=== PATIENT | female | born 1985 | race Caucasian/White ===

== ENCOUNTER 2018-04-26 14:07 | Outpatient (CLI) | payer MEDICAID, SELFPAY ==
[2018-04-26 16:08] LABS: TSH 3.62 uIU/mL (0.358-3.74)
[2018-04-26 16:10] LABS: HCG Quant, Pregnancy 53013 mIU/mL (1-3)
[2018-04-26 16:27] LABS: FREE T4 1.13 ng/dL (0.76-1.46)
== END 2018-04-26 14:27 ==
PROVIDERS: PCP Nurse Practitioner; Visit Provider Nurse Practitioner Family
DX: E03.9 Hypothyroidism, unspecified (principal); N92.6 Irregular menstruation, unspecified
CPT/HCPCS: 36415; 84439; 84443; 84702

== ENCOUNTER 2018-05-28 16:16 | Outpatient (CLI) | payer MEDICAID, SELFPAY ==
--- NOTE | 2018-05-28 16:15 | DI.US_ITS ---
SYMPTOMS/DIAGNOSIS: BLEEDING AND CRAMPING, S/P MAB 05/10 PELVIC ULTRASOUND: Pelvic ultrasound was performed transabdominally and transvaginally. Please see the accompanying data sheet for measurements of the pelvic structures. The endometrial stripe is about 18 mm in thickness and mildly heterogeneous consistent with hemorrhage as clinically reported. No other endometrial abnormality seen. Ovaries are normal in appearance. No free fluid identified in the cul-de-sac. CONCLUSION: Presumed hemorrhage in endometrial cavity. No other abnormality seen.
== END 2018-05-28 16:36 ==
PROVIDERS: PCP Nurse Practitioner; Visit Provider Nurse Practitioner Adult Health
DX: N93.9 Abnormal uterine and vaginal bleeding, unspecified (principal); N94.6 Dysmenorrhea, unspecified
CPT/HCPCS: 76830; 76856

== ENCOUNTER 2019-01-15 12:26 | Emergency (ER) | payer MEDICAID, SELFPAY ==
[2019-01-15 12:33] VITALS: BP 143/103; PULSE 75; RESP 16; TEMP 36.7; O2SAT 98
--- NOTE | 2019-01-15 12:41 | ED.GENADUL_ITS ---
Discharge Plan Disposition Patient Disposition: HOME Condition: Good Discharge Details Chief Complaint: Sorethroat Clinical Impression: URI (upper respiratory infection) Primary Care Provider: Teddy Walker ED Provider: Genia Mcbride Home Meds and New Rx's Prescriptions: New benzonatate [Tessalon Perles] 100 mg capsule 100 mg PO TID PRN (Reason: cough) Qty: 14 RF: 0 Continued levothyroxine 25 MCG tablet 25 mcg PO DAILY RF: 0 levetiracetam [Keppra XR] 500 MG tablet extended release 24 hr 750 mg PO DAILY RF: 0 Discharge Instructions Instructions: Upper Respiratory Infection (ED) Additional Instructions: Encourage hydration. Tylenol and/or ibuprofen as needed for discomfort. May use Tessalon Perles as prescribed to help with cough. Continue smoking cessation. Please follow-up with primary care in 1 to 2 weeks if not improved. Seek care urgently once again if you develop difficulty breathing, shortness of breath, inability stay hydrated or other new/worsening symptoms. Referrals: Teddy Walker [Primary Care Provider] - Medical Decision Making Patient is a 33-year-old female presenting today with chief complaint of URI. She reports she developed cough, congestion, sore throat 4 days ago. Denies any fevers or chills. No change in her appetite, no GI upset. Denies any sinus pain. No recent travel or antibiotics. Patient status post hysterectomy. On exam, patient appears nontoxic. Posterior oropharynx significant for mild erythema otherwise exam is without significant abnormality. Rapid strep testing was negative. Discussed these findings with the patient. Advised likely viral. Encourage hydration. We discussed symptomatic management. Will prescribe Tessalon Perles to help with cough. Advised the new/worsening symptoms that should prompt him to seek care urgently once again. Advised otherwise she follow-up with primary care if not improved in 1 week. All of her questions and concerns were addressed and she is in agreement this plan HPI General Mode of arrival: ambulatory . Date/Time Provider Initiated Documentation: 01/15/19 12:41 . Limitations to Documentation: no limitations . Information obtained by: patient and RN notes reviewed . History of Present Illness 33 year old F presents to the emergency department with the chief complaint of URI symptoms with congestion, cough, runny nose, sore throat, described as moderate, with intensity rated at 5. Quality is described as aching (sore throat), Patient started experiencing this day(s) (4) and it has been constant. No relieving factors improve symptom(s), No exacerbating factors reported . Patient notes no other symptoms. and cough; denies chest pain, diaphoresis, fever/chills, headaches, loss of appetite, nausea/vomiting, rash and shortness of breath. Patient did receive the following treatments prior to arrival, none Related Data Home Medications Medication Instructions Recorded Confirmed levetiracetam [Keppra XR] 750 mg PO DAILY tab-cap 02/12/15 01/15/19 levothyroxine 25 mcg PO DAILY tab-cap 02/12/15 01/15/19 benzonatate [Tessalon Perles] 100 mg PO TID PRN #14 cap 01/15/19 Previous Rx's Medication Instructions Recorded benzonatate [Tessalon Perles] 100 mg PO TID PRN #14 cap 01/15/19 Allergies Allergy/AdvReac Type Severity Reaction Status Date / Time prednisone AdvReac Intermediate FORGETFUL Verified 01/15/19 12:36 AND ANGRY environmental Allergy Intermediate Uncoded 04/29/18 09:51 General Stated Complaint: Sorethroat NICHOLAS: 4 Review of Systems Constitutional Constitutional: Reports as per HPI, Denies chills, Denies fever(s) and Denies headache(s) Eyes Eyes: Reports as per HPI, Denies eye discharge and Denies irritation ENT Ears, Nose, Mouth, and Throat: Reports as per HPI and Denies headache(s) Cardiovascular Cardiovascular: Reports as per HPI, Denies chest pain and Denies dyspnea Respiratory Respiratory: Reports as per HPI and Denies dyspnea Gastrointestinal Gastrointestinal: Reports as per HPI, Denies abdominal pain, Denies change in bowel habits, Denies nausea and Denies vomiting Integumentary/Breasts Skin/Breast: Reports as per HPI and Denies rash Neurologic Neurologic: Reports as per HPI and Denies headache(s) [facility] Medical History Abdominal pain (Resolved) Childhood asthma History of depression HSIL (high grade squamous intraepithelial lesion) on Pap smear of cervix (Acute 10/05/15) 10/05/15 LEEP Rx - TASHIA II-III - high grade lesion present at endocervical margin. 10/2016 Pap - HGSIL. LEEP recommended. Hypothyroid (Acute 11/24/11) Migraine without aura Personal history of cervical dysplasia (Acute 02/12/15) TASHIA I-II 08/2014 Reading seizure disorder (Chronic) Seizure disorder (Acute 11/24/11) Tobacco use (Acute 12/18/16) Surgical History section (~2008) Social History Smoking/Tobacco Use Status: Current every day Alcohol Intake: current Alcohol Intake frequency: holidays/special occasions only Drug use: Never Do you feel safe at home: Yes Do you feel safe in your relationship?: Yes History History 3 Para 1 Hx # Term Pregnancies Multiple births Hx # Pregnancies Ectopic pregnancies AB induced Hx Number of Living Children AB spontaneous Exam Const General: cooperative, healthy appearing, comfortable, no acute distress, well developed and well groomed Nutritional Appearance: average body habitus and well nourished Orientation: alert and awake HENMT Head: normal to inspection, normocephalic and atraumatic Ears: hearing grossly normal bilaterally, external ears normal and TM's normal bilaterally General nose exam: external nose normal and nares normal Face and sinus: normal facial exam, sinuses nontender and face symmetric Mouth: oral mucosae normal, lip normal, tongue normal, oropharynx normal and moist mucous membranes Teeth and gingiva: dentition normal Throat: posterior oropharynx abnormal (mild erythema), uvula midline and tonsils absent Eyes General: appearance normal, both eyes and all related structures Neck Neck: normal visual inspection, full ROM, no lymphadenopathy and no meningeal signs Resp Effort & Inspection: normal respiratory effort, able to speak in complete sentences and no respiratory distress Auscultation: clear to auscultation bilaterally, no rales, no rhonchi and no wheezes Cardio Rate: regular rate Rhythm: regular rhythm Heart Sounds: S1 normal and S2 normal Skin General skin exam: no rashes or lesions noted Neuro General: alert and awake Cognition: normal cognition Speech: speech normal Gait: normal gait Psych Appearance: grossly normal and well kempt Mental Status: mental status grossly normal Speech and Movement: speech and movement normal Course Vital Signs Vital signs: Vital Signs Temperature 36.7 C 01/15/19 12:33 Pulse 75 01/15/19 12:33 Respiratory Rate 16 01/15/19 12:33 Blood Pressure 143/103 H 11/30/19 12:33 Pulse Oximetry 98 01/15/19 12:33 Temperature 36.7 C 01/15/19 12:33 Temperature Source Temporal Artery Scan 01/15/19 12:33 Pulse 75 01/15/19 12:33 Respiratory Rate 16 01/15/19 12:33 Respiratory Effort Non-Labored 01/15/19 12:35 Blood Pressure 143/103 H 01/15/19 12:33 Blood Pressure Position Sitting 01/15/19 12:33 Pulse Oximetry 98 01/15/19 12:33 Oxygen Delivery Method Room Air 01/15/19 12:33 Oxygen Flow Rate 0 01/15/19 12:33 Pain Level 5 01/15/19 12:33 Lab/Test Results Lab/Test Results: 01/15/19 12:37 Tonsil - Not Specified Streptococcus Screen (ABDOUL) - Pending POC Strep Test-EVELYNE(Rapid) Start: 01/15/19 12:33 Freq: .Rapid Strep Test Status: Active Protocol: Document 01/15/19 12:37 SF (Rec: 01/15/19 12:37 [id number]) Strep test-EVELYNE(Rapid)-POC POC-Strep test-EVELYNE (Rapid) Negative POC-Strep test-EVELYNE (Rapid) Negative
== END 2019-01-15 13:00 | disposition home or self-care (01) ==
PROVIDERS: Emergency Provider Physician Assistant; PCP Nurse Practitioner
DX: J06.9 Acute upper respiratory infection, unspecified (principal)
CPT/HCPCS: 87880; 99283; 87081

== ENCOUNTER 2024-04-26 03:10 | Outpatient (CLI) | payer MEDICAID, SELFPAY ==
[2024-04-26 14:06] LABS: Abs Immature Grans 0.01 10^3/uL (0.0-0.06); Absolute Basophil Count 0.05 10^3/uL (0.0-0.2); Absolute Eosinophil Count 0.13 10^3/uL (0.0-0.7); Absolute Lymphocyte Count 1.52 10^3/uL (1.2-3.4); Absolute Monocyte Count 0.54 10^3/uL (0.1-0.8); Absolute Neutrophil Count 2.18 10^3/uL (1.2-6.7); Basophils % 1.1 %; Eosinophils % 2.9 %; HCT 40.9 % (36.0-46.0); HGB 14.2 g/dL (11.2-15.7); Immature Grans % 0.2 %; Lymphocytes % 34.3 %; MCH 30.3 pg (27.0-33.0); MCHC 34.7 % (32.0-36.0); MCV 87 fL (80-95); Monocytes % 12.2 %; Neutrophils % 49.3 %; Platelet Count 365 10^3/uL (130-400); RBC 4.68 10^6/uL (3.93-5.22); RDW 12.5 % (11.7-14.6); RDW-SD 39.8 fL; WBC 4.43 10^3/uL (4.4-10.8)
[2024-04-26 15:04] LABS: ALT 19 U/L (14-59); AST 18 U/L (15-37); Albumin 4.1 g/dL (3.4-5.0); Alkaline Phosphatase 69 U/L (46-116); Anion Gap 8.6 mmol/L (3-11); BUN 14 mg/dL (7-18); Bilirubin, Total 0.4 mg/dL (0.2-1.0); CO2 26.4 mmol/L (21.0-32.0); CREATININE 0.9 mg/dL (0.55-1.02); Calcium 8.9 mg/dL (8.5-10.1); Chloride 105 mmol/L (98-107); Estimated GFR 84.44 (mL/min/1.73m2); Glucose 109 mg/dL (74-106); Magnesium 2.2 mg/dL (1.8-2.4); Sodium 140 mmol/L (136-145); TSH 2.11 uIU/mL (0.36-3.74); Total Protein 7.5 g/dL (6.4-8.2)
[2024-04-26 23:15] LABS: T3,Free 4.6 pg/mL (2.8-5.3); T4, Free 1.8 ng/dL (0.8-2.2)
== END 2024-04-26 03:11 | disposition home or self-care (01) ==
LOC: LBO 03:10
PROVIDERS: PCP Nurse Practitioner; Visit Provider Nurse Practitioner
DX: E03.9 Hypothyroidism, unspecified (principal); R53.83 Other fatigue
CPT/HCPCS: 36415; 80053; 83735; 84439; 84443; 84481; 85025

== ENCOUNTER 2024-07-02 15:24 | Emergency (ER) | payer MEDICAID, SELFPAY ==
[2024-07-02 15:27] VITALS: BP 158/78; PULSE 90; RESP 18; TEMP 36.6; O2SAT 98
--- NOTE | 2024-07-02 15:30 | RT.EKG_ITS ---
APPROVED REPORT Exam: Resting ECG Reason for Exam: baseline/screening Patient Location: E HR:66 bpm ECG Measurements Heart Rate 66 AXIS ID 153 P 69 QRSd 81 QRS 71 QT 384 T 60 QTc 404 Conclusion Sinus rhythm...normal P axis, V-rate 60- 99
[2024-07-02 16:04] LABS: Abs Immature Grans 0.01 10^3/uL (0.0-0.06); Absolute Basophil Count 0.06 10^3/uL (0.0-0.2); Absolute Eosinophil Count 0.13 10^3/uL (0.0-0.7); Absolute Lymphocyte Count 1.28 10^3/uL (1.2-3.4); Absolute Monocyte Count 0.53 10^3/uL (0.1-0.8); Basophils % 1.3 %; Eosinophils % 2.8 %; HGB 14.2 g/dL (11.2-15.7); Immature Grans % 0.2 %; Lymphocytes % 27.8 %; MCH 30.3 pg (27.0-33.0); MCHC 34.6 % (32.0-36.0); MCV 87 fL (80-95); MPV 8.5 fL (8.0-11.0); Monocytes % 11.5 %; Neutrophils % 56.4 %; Platelet Count 351 10^3/uL (130-400); RBC 4.69 10^6/uL (3.93-5.22); RDW 12.3 % (11.7-14.6); RDW-SD 39.3 fL; WBC 4.61 10^3/uL (4.4-10.8)
[2024-07-02 16:12] LABS: Anion Gap 7.3 mmol/L (3-11); BUN 11 mg/dL (7-18); CO2 26.7 mmol/L (21.0-32.0); CREATININE 0.7 mg/dL (0.55-1.02); Calcium 8.7 mg/dL (8.5-10.1); Chloride 101 mmol/L (98-107); Estimated GFR 113.46 (mL/min/1.73m2); Glucose 140 mg/dL (74-106); Potassium 3.8 mmol/L (3.5-5.1); Sodium 135 mmol/L (136-145)
[2024-07-02 16:31] LABS: Troponin I 7 ng/L (<or=51)
--- NOTE | 2024-07-02 16:40 | ED.GENADUL_ITS ---
Discharge Plan Disposition Patient Disposition: Home Condition: Stable Discharge Details Clinical Impression: Erythema migrans (Lyme disease) Primary Care Provider: Teddy Walker ED Provider: Benji Disla Home Meds and New Rx's Prescriptions: New doxycycline hyclate 100 mg capsule 100 mg PO BID 21 Days Qty: 42 0RF Continued venlafaxine 75 mg tablet 75 mg PO DAILY sumatriptan succinate 50 mg tablet See Rx Instructions PO .COMPLEX Rx Instructions: take 1 tab at onset of headache; if no relief may repeat 1 tab after at least 2 hrs; max = 4 tabs/24 hr PO levetiracetam 750 mg tablet 750 mg PO BID levothyroxine 50 mcg capsule 50 mcg PO DAILY benzonatate [Tessalon Perles] 100 mg capsule 100 mg PO TID PRN (Reason: cough) Qty: 14 0RF Discharge Instructions Instructions: Lyme disease, Doxycycline Additional Instructions: You were seen in the emergency department for likely tick bite of your left forearm which resembles an atypical Lyme disease rash. I am starting on 21 days of doxycycline, please take these as directed, we did send off Lyme and tick panel test, if this is a different tickborne illness we may need to change her antibiotics so please call back if you have not heard of these results in 4 to 5 days. Your blood work shows no acute abnormality in your EKG is normal today. Please watch your condition closely, take Tylenol and ibuprofen for any fevers or bodyaches, stay well-hydrated, always take the doxycycline with food, return for any chest pain or severe palpitations with dizziness, or any other emergent concerns. Referrals: Teddy Walker [Primary Care Provider] - Discharge Data Discharge Date/Time-TO BE ENTERED AT DEPARTURE: 07/02/24 17:07 HPI General Date/Time Provider Initiated Documentation: 07/02/24 15:31 . HPI Narrative: 39 year-old female presents to ED today by POV/ambulating with a chief complaint of swelling/redness/bruise to L foerarm from known bite with onset noted last night around 5pm. Quality described as mild body aches, has found ticks on her in other locations, no radiation to chest pain, dizziness, nausea, vomiting, abdominal pain, fevers, endorses palpitations. Severity is described as mild. Palliating factors include nothing specific attempted. Provoking factors include nothing specific. 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 Patient not anticoagulated. Related Data Home Medications ?Medication ?Instructions ?Recorded ?Confirmed benzonatate 100 mg capsule 100 mg PO TID PRN cough #14 caps 01/15/19 (Daija Manuel) levetiracetam 750 mg tablet 750 mg PO BID 10/09/20 levothyroxine 50 mcg capsule 50 mcg PO DAILY 10/09/20 sumatriptan succinate 50 mg tablet See Rx Instructions PO .COMPLEX 10/09/20 venlafaxine 75 mg tablet 75 mg PO DAILY 10/09/20 doxycycline hyclate 100 mg capsule 100 mg PO BID 21 days #42 caps 07/02/24 Previous Rx's ?Medication ?Instructions ?Recorded benzonatate 100 mg capsule 100 mg PO TID PRN cough #14 caps 01/15/19 (Daija Manuel) doxycycline hyclate 100 mg capsule 100 mg PO BID 21 days #42 caps 07/02/24 Allergies Allergy/AdvReac Type Severity Reaction Status Date / Time prednisone AdvReac Intermediate FORGETFUL Verified 01/15/19 12:36 AND ANGRY environmental Allergy Intermediate Uncoded 04/29/18 09:51 General Stated Complaint: RashLesion NICHOLAS: 4 Review of Systems All systems reviewed & are unremarkable except as noted in HPI and below Exam Narrative Exam Narrative: GENERAL APPEARANCE: Well-nourished, non-toxic, awake and alert, atraumatic, no acute distress. SKIN: Warm, pink, dry, rash around insect bite to left forearm consistent with erythema migrans, no nichols erythema, no significant tenderness, no fluctuant abscess HEAD: Normocephalic, atraumatic, normal hair distribution for gender/age. EYES: Normal conjunctiva, no exudates on lids/lashes. ENT: Nares patent, no circumoral cyanosis, no facial swelling NECK: Supple, trachea midline, painless cervical ROM. LUNGS/CHEST: Lungs CTA bilaterally-no rhonchi/rales/wheezes diffusely, non- labored respirations, normal A/P diameter, symmetrical expansion, no chest wall deformity HEART (CV/PV): Regular rate and rhythm without murmur, no peripheral edema, no JVD. ABDOMEN: Soft, non-distended, no guarding. MSK: Normal ROM, no swelling/deformity to bilateral UEs or LEs, moving all extremities without weakness, no cyanosis, spine midline without tenderness, normal curvature. NEURO: Mental Status AAOx4 - alert to person, place, time, events No facial droop, no forehead involvement. Motor: No focal weakness - strength 5/5 in bilateral UEs and LEs, proximal and distal, symmetric. Sensory: sensation intact to light touch globally. Gait normal: patient ambulated without ataxia into ED room. PSYCH: euthymic, cooperative, pleasant, appropriate speech Course Vital Signs Vital signs: Vital Signs Temperature 36.6 C 07/02/24 15:27 Pulse 90 07/02/24 15:27 Respiratory Rate 18 07/02/24 15:27 Blood Pressure 158/78 H 07/02/24 15:27 Pulse Oximetry 98 07/02/24 15:27 Temperature 36.6 C 07/02/24 15:27 Temperature Source Oral 07/02/24 15:27 Pulse 90 07/02/24 15:27 Respiratory Rate 18 07/02/24 15:27 Blood Pressure 158/78 H 07/02/24 15:27 Blood Pressure Position Sitting 07/02/24 15:27 Pulse Oximetry 98 07/02/24 15:27 Oxygen Delivery Method Room Air 07/02/24 15:27 Oxygen Flow Rate 0 07/02/24 15:27 Lab/Test Results Lab/Test Results: Laboratory Tests Range/Units 07/02/24 15:54 WBC (4.4-10.8) 10^3/uL 4.61 RBC (3.93-5.22) 10^6/uL 4.69 Hgb (11.2-15.7) g/dL 14.2 Hct (36.0-46.0) % 41.0 MCV (80-95) fL 87 MCH (27.0-33.0) pg 30.3 MCHC (32.0-36.0) % 34.6 RDW (11.7-14.6) % 12.3 Plt Count (130-400) 10^3/uL 351 MPV (8.0-11.0) fL 8.5 Immature Gran % % 0.2 Neutrophils % % 56.4 Lymphocytes % % 27.8 Monocytes % % 11.5 Eosinophils % % 2.8 Basophils % % 1.3 Nucleated RBC % (0.0-0.3) % 0.0 Absolute Neutrophils (1.2-6.7) 10^3/uL 2.60 Absolute Lymphocytes (1.2-3.4) 10^3/uL 1.28 Absolute Monocytes (0.1-0.8) 10^3/uL 0.53 Absolute Eosinophils (0.0-0.7) 10^3/uL 0.13 Absolute Basophils (0.0-0.2) 10^3/uL 0.06 Sodium (136-145) mmol/L 135 L Potassium (3.5-5.1) mmol/L 3.8 Chloride (98-107) mmol/L 101 Carbon Dioxide (21.0-32.0) mmol/L 26.7 Anion Gap (3-11) mmol/L 7.3 BUN (7-18) mg/dL 11 Creatinine (0.55-1.02) mg/dL 0.7 Est GFR (CKD-EPI 2020) (mL/min/1.73m2) 113.46 Glucose (74-106) mg/dL 140 H Calcium (8.5-10.1) mg/dL 8.7 Troponin I (<or=51) ng/L 7 Medical Decision Making This dictation utilizes [id number] dictation software and may contain unedited grammatical errors. 39 year-old female presents to ED today by POV/ambulating with a chief complaint of swelling/redness/bruise to L chastity from known bite with onset noted last night around 5pm. Quality described as mild body aches, has found ticks on her in other locations, no radiation to chest pain, dizziness, nausea, vomiting, abdominal pain, fevers, endorses palpitations. Severity is described as mild. Palliating factors include nothing specific attempted. Provoking factors include nothing specific. 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 Patients' medical history: Noncontributory. Family and social history: Noncontributory. Pertinent exam findings / vital signs include left forearm insect bite with surrounding erythema mild central clearing without overt target lesion but still consistent with an tickborne illness rash, benign cardiopulmonary exam, nontoxic and afebrile. Differential / pathologies of concern include Lyme disease or other tickborne illness. Diagnostic studies of: - CBC, CMP, troponin, tick and Lyme panel, EKG. - CBC completely benign - CMP completely benign - Troponin negative - Lyme disease antibody negative, but possibly too early for reliable antibody test- would recommend treating regardless of Lyme result - EKG without heart block Interventions of: -Rx for 21 days doxycycline. ED Course/Assessment/Plan: 39-year-old female was working with insulation, noticed a insect bite to left forearm, has a rash or consistent with erythema migrans, treating with 21 days doxycycline, EKG without heart block. Recommend PCP follow-up with strict return criteria for any chest pain or palpitations. Findings not consistent with lyme carditis, abscess/cellulitis. Disposition of Erythema Migrans (Lyme Disease). Patient verbalized understanding of the plan and return to ED criteria and engaged in shared decision making. Medical Records Medical records reviewed: Yes I reviewed the patient's medical records. Lab Data Lab results reviewed: Yes I reviewed the patient's lab results. Labs: Laboratory Tests Range/Units 07/02/24 15:54 WBC (4.4-10.8) 10^3/uL 4.61 RBC (3.93-5.22) 10^6/uL 4.69 Hgb (11.2-15.7) g/dL 14.2 Hct (36.0-46.0) % 41.0 MCV (80-95) fL 87 MCH (27.0-33.0) pg 30.3 MCHC (32.0-36.0) % 34.6 RDW (11.7-14.6) % 12.3 Plt Count (130-400) 10^3/uL 351 MPV (8.0-11.0) fL 8.5 Immature Gran % % 0.2 Neutrophils % % 56.4 Lymphocytes % % 27.8 Monocytes % % 11.5 Eosinophils % % 2.8 Basophils % % 1.3 Nucleated RBC % (0.0-0.3) % 0.0 Absolute Neutrophils (1.2-6.7) 10^3/uL 2.60 Absolute Lymphocytes (1.2-3.4) 10^3/uL 1.28 Absolute Monocytes (0.1-0.8) 10^3/uL 0.53 Absolute Eosinophils (0.0-0.7) 10^3/uL 0.13 Absolute Basophils (0.0-0.2) 10^3/uL 0.06 Sodium (136-145) mmol/L 135 L Potassium (3.5-5.1) mmol/L 3.8 Chloride (98-107) mmol/L 101 Carbon Dioxide (21.0-32.0) mmol/L 26.7 Anion Gap (3-11) mmol/L 7.3 BUN (7-18) mg/dL 11 Creatinine (0.55-1.02) mg/dL 0.7 Est GFR (CKD-EPI 2020) (mL/min/1.73m2) 113.46 Glucose (74-106) mg/dL 140 H Calcium (8.5-10.1) mg/dL 8.7 Troponin I (<or=51) ng/L 7 Lyme Disease Antibody (Negative) Negative Quality:SDOH Health Related Social Needs: No Data to Display PFSH All Active Problems Erythema migrans (Lyme disease) (Acute) (Acute) Pelvic Ultrasound Transvaginal ultrasound was performed. A viable cheung IUP was noted with cardiac activity of 154. CRL measures 0.7 cm c/w a gestational age of 6 weeks 4 days with an EDC of 12/19/2018. Ovaries were visualized and normal in appearance. Cul de sac is clear and without free fluid. 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 10/2016 Pap - HGSIL. LEEP recommended. Hypothyroid (Acute 11/24/11) Personal history of cervical dysplasia (Acute 02/12/15) TASHIA I-II 08/2014 Tobacco use (Acute 12/18/16) Medical History (Updated 07/02/24 @ 16:47 by AMY Cortes) DJD (degenerative joint disease), lumbar Chronic back pain PTSD (post-traumatic stress disorder) Depression with anxiety Headache syndrome Abdominal pain Surgical History (Updated 10/09/20 @ 15:36 by Amanda Deleon) Hx of hysterectomy, total section (~2008) Family History (Updated 10/09/20 @ 15:37 by Amanda Deleon) Mother Thyroid disease Social History Smoking/Tobacco Use Status: Current every day Tobacco Type: cigarettes Years smoked: 29 Smoking risk assessment performed?: Yes Alcohol Intake: current Alcohol Intake frequency: holidays/special occasions only Alcohol type: beer Drug use: Occasionally Substance use type: marijuana Do you feel safe at home: Yes Do you feel safe in your relationship?: Yes History History 3 Para 1 Hx # Term Pregnancies Multiple births Hx # Pregnancies Ectopic pregnancies AB induced Hx Number of Living Children AB spontaneous PAWSS Have you Been Recently Intoxicated or Drunk Within the Last 30 days?: No Have you Ever Experienced Previous Episodes of Alcohol Withdrawal?: No Have you ever Experienced Withdrawal Seizures?: No Have you ever Experienced Delirium Tremens(DT)s?: No Have you ever undergone Alcohol Rehabilitation Treatment (i.e, inpt ot outpatient treatment programs)?: No Have you ever Experienced Blackouts?: No Have you ever Combined Alcohol with other Downers within the last 90 days?: No Have you ever Combined Alcohol with any other Substance of Abuse during the last 90 days?: No Positive Blood Alcohol level on Presentation? [PCS.BAL]: No Evidence of Increased Autonomic Activity (i.e. HR>120, tremor, sweating, agitation, nausea)?: No Result: 0
[2024-07-02] MEDS: Doxycycline Hyclate 100 MG CAP PO (17:02)
[2024-07-02 17:05] VITALS: BP 114/68; PULSE 78; RESP 18; O2SAT 99
[2024-07-04 12:38] LABS: Lyme Ab w Rflx to Lyme Confirm Negative (Negative)
[2024-07-06 01:07] LABS: Anaplasma phagocytophilum Negative (Negative); B. miyamotoi PCR Negative (Negative); Babesia divergens/MO-1 Negative (Negative); Babesia duncani Negative (Negative); Babesia microti Negative (Negative); Ehrlichia chaffeensis Negative (Negative); Ehrlichia ewingii/canis Negative (Negative); Ehrlichia muris eauclairensis Negative (Negative)
== END 2024-07-02 17:07 | disposition home or self-care (01) ==
LOC: ER 17:10
PROVIDERS: Emergency Provider Physician Assistant; PCP Nurse Practitioner
DX: A69.20 Lyme disease, unspecified (principal); R21 Rash and other nonspecific skin eruption
CPT/HCPCS: 99283; 99284; 80048; 87798; 93005; 84484; 85025; 86618; 93010

== ENCOUNTER 2024-07-23 11:02 | Emergency (ER) | payer MEDICAID, SELFPAY ==
[2024-07-23] VITALS (47 sets, daily range): BP systolic 147–162; BP diastolic 98–100; PULSE 65–98; RESP 16; TEMP 36.6; O2SAT 95–100
--- NOTE | 2024-07-23 11:15 | RT.EKG_ITS ---
APPROVED REPORT Exam: Resting ECG Reason for Exam: baseline/screening Patient Location: E HR:64 bpm ECG Measurements Heart Rate 64 AXIS MT 161 P 70 QRSd 66 QRS 74 QT 383 T 65 QTc 395 Conclusion Sinus rhythm...normal P axis, V-rate 60- 99
[2024-07-23 11:39] LABS: Lactate 0.7 mmol/L (<or=2.0)
[2024-07-23 11:40] LABS: Abs Immature Grans 0.01 10^3/uL (0.0-0.06); Absolute Basophil Count 0.05 10^3/uL (0.0-0.2); Absolute Eosinophil Count 0.11 10^3/uL (0.0-0.7); Absolute Lymphocyte Count 1.17 10^3/uL (1.2-3.4); Absolute Monocyte Count 0.51 10^3/uL (0.1-0.8); Absolute Neutrophil Count 2.92 10^3/uL (1.2-6.7); Eosinophils % 2.3 %; HCT 39.7 % (36.0-46.0); HGB 13.5 g/dL (11.2-15.7); Immature Grans % 0.2 %; Lymphocytes % 24.5 %; MCV 88 fL (80-95); MPV 8.5 fL (8.0-11.0); Monocytes % 10.7 %; Neutrophils % 61.3 %; Platelet Count 351 10^3/uL (130-400); RDW 12.5 % (11.7-14.6); RDW-SD 41.2 fL; WBC 4.77 10^3/uL (4.4-10.8)
[2024-07-23] MEDS: Normal Saline 1,000 ML 1000 ML IV (11:44)
[2024-07-23] MEDS: LORazepam 20 MG/10 ML VIAL IVP (11:51)
--- NOTE | 2024-07-23 12:00 | DI.CT_ITS ---
Exam(s) CT HEAD WO EXAM: CT HEAD WO CLINICAL HISTORY: breakthrough seizures. TECHNIQUE: Imaging Protocol: Axial computed tomography images with coronal and sagittal reformatted images were created and reviewed COMPARISON: No exams were available for comparison FINDINGS: Ventricles and Extra axial spaces: Normal in size and morphology for the patient's age. Hemorrhage: None. Cerebral parenchyma: Normal. Midline shift: None. Brainstem/Cerebellum: Normal. Calvarium: Normal. Visualized Paranasal sinuses/Mastoids: Clear. Soft Tissues: Unremarkable. IMPRESSION: No acute intracranial process. RADIATION DOSE DELIVERED: 809.81mGy.cm Total DLP DATA REPOSITORY: All CT scans at this facility are submitted to the National Radiology Data Registry (NRDR) Dose Index Registry (DIR) with the [employer] (ACR). RADIATION OPTIMIZATION: All CT scans at this facility use at least one of these dose optimization te chniques: automated exposure control; mA and/or kV adjustment per patient size (includes targeted exa ms where dose is matched to clinical indication); or iterative reconstruction.
[2024-07-23 12:01] LABS: Creatine Kinase 189 U/L (26-192)
--- NOTE | 2024-07-23 12:06 | ED.GENADUL_ITS ---
Discharge Plan Disposition Patient Disposition: Home Condition: Stable Discharge Details Clinical Impression: Increasing frequency of seizure activity Primary Care Provider: Teddy Wlaker ED Provider: Benji Disla Home Meds and New Rx's Prescriptions: Continued venlafaxine 75 mg tablet 75 mg PO DAILY sumatriptan succinate 50 mg tablet See Rx Instructions PO .COMPLEX Rx Instructions: take 1 tab at onset of headache; if no relief may repeat 1 tab after at least 2 hrs; max = 4 tabs/24 hr PO levetiracetam 750 mg tablet 750 mg PO BID levothyroxine 50 mcg capsule 50 mcg PO DAILY benzonatate [Tessalon Perles] 100 mg capsule 100 mg PO TID PRN (Reason: cough) Qty: 14 0RF Discharge Instructions Instructions: Seizures, Adult ED Additional Instructions: You were seen in the emergency department for your recent breakthrough seizure activity, your labs are reassuring with your episode of status epilepticus with a normal CK and normal lactate, I do not suspect any infection based on your lab workup, your thyroid hormone is normal, CT of your head is normal, EKG is normal. He states you have had a recent tick and Lyme test, it may be stress and lack of sleep that is increasing your breakthrough seizures, please follow- up with your neurologist to see if he wants to increase your dose of Keppra, your Keppra level is pending and should return in a couple days. Please return for any uncontrollable seizure activity or any other emergent concern. Referrals: Teddy Walker [Primary Care Provider] - Discharge Data Discharge Date/Time-TO BE ENTERED AT DEPARTURE: 07/23/24 16:33 HPI General Date/Time Provider Initiated Documentation: 07/23/24 11:16 . HPI Narrative: 39 year-old female presents to ED today by POV/ambulating with her boyfriend with a chief complaint of possible breakthrough seizure-activity last night- states she has been in a daze, possibly had some focal seizures in her sleep, having increased auras of her usual seizures in the setting of chronic epilepsy. Quality described as just feels fatigued, took a double dose of her Keppra this morning for a total of 1500mg, no radiation to active seizures, fever, cough, ETOH/drug use, nausea/vomiting, diarrhea, endorses more stress and lack of sleep than usual lately. Severity is described as moderate. Palliating factors include double dose of Keppra. Provoking factors include nothing specific. Patient not anticoagulated. Related Data Home Medications ?Medication ?Instructions ?Recorded ?Confirmed benzonatate 100 mg capsule 100 mg PO TID PRN cough #14 caps 01/15/19 07/23/24 (Daija Manuel) levetiracetam 750 mg tablet 750 mg PO BID 10/09/20 07/23/24 levothyroxine 50 mcg capsule 50 mcg PO DAILY 10/09/20 07/23/24 sumatriptan succinate 50 mg tablet See Rx Instructions PO .COMPLEX 10/09/20 07/23/24 venlafaxine 75 mg tablet 75 mg PO DAILY 10/09/20 07/23/24 Previous Rx's ?Medication ?Instructions ?Recorded benzonatate 100 mg capsule 100 mg PO TID PRN cough #14 caps 01/15/19 (Daija Manuel) Allergies Allergy/AdvReac Type Severity Reaction Status Date / Time prednisone AdvReac Intermediate FORGETFUL Verified 07/23/24 11:08 AND ANGRY environmental Allergy Intermediate Unknown Uncoded 07/23/24 11:08 General Stated Complaint: Seizure NICHOLAS: 3 Review of Systems All systems reviewed & are unremarkable except as noted in HPI and below Exam Narrative Exam Narrative: GENERAL APPEARANCE: Well-nourished, non-toxic, awake and alert, atraumatic, no acute distress. SKIN: Warm, pink, dry, intact, without rashes/lesions/ulcerations. HEAD: Normocephalic, atraumatic, normal hair distribution for gender/age. EYES: Normal conjunctiva, no exudates on lids/lashes. ENT: Nares patent, no circumoral cyanosis, no facial swelling NECK: Supple, trachea midline, painless cervical ROM. LUNGS/CHEST: Lungs CTA bilaterally- no rhonchi/rales/wheezes diffusely, non- labored respirations, normal A/P diameter, symmetrical expansion, no chest wall deformity HEART (CV/PV): Regular rate and rhythm without murmur, no peripheral edema, no JVD. ABDOMEN: Soft, non-distended, no guarding. MSK: Normal ROM, no swelling/deformity to bilateral UEs or LEs, moving all extremities without weakness, no cyanosis, spine midline without tenderness, normal curvature. NEURO: Mental Status AAOx4 - alert to person, place, time, events No facial droop, no forehead involvement. Motor: No focal weakness - strength 5/5 in bilateral UEs and LEs, proximal and distal, symmetric. Sensory: sensation intact to light touch globally. Gait normal: patient ambulated without ataxia into ED room. PSYCH: euthymic, cooperative, pleasant, appropriate speech Course Vital Signs Vital signs: Vital Signs Temperature 36.6 C 07/23/24 11:04 Pulse 98 H 07/23/24 11:04 Respiratory Rate 16 07/23/24 11:04 Blood Pressure 147/98 H 07/23/24 11:04 Pulse Oximetry 95 07/23/24 11:04 Temperature 36.6 C 07/23/24 11:04 Temperature Source Oral 07/23/24 11:04 Pulse 98 H 07/23/24 11:04 Respiratory Rate 16 07/23/24 11:04 Respiratory Effort Normal 07/23/24 12:00 Respiratory Depth Normal 07/23/24 12:00 Respiratory Pattern Normal 07/23/24 12:00 Blood Pressure 147/98 H 07/23/24 11:04 Blood Pressure Position Sitting 07/23/24 11:04 Pulse Oximetry 95 07/23/24 11:04 Oxygen Delivery Method Room Air 07/23/24 11:04 Oxygen Flow Rate 0 07/23/24 11:04 Lab/Test Results Lab/Test Results: Laboratory Tests Range/Units 07/23/24 11:30 WBC (4.4-10.8) 10^3/uL 4.77 RBC (3.93-5.22) 10^6/uL 4.50 Hgb (11.2-15.7) g/dL 13.5 Hct (36.0-46.0) % 39.7 MCV (80-95) fL 88 MCH (27.0-33.0) pg 30.0 MCHC (32.0-36.0) % 34.0 RDW (11.7-14.6) % 12.5 Plt Count (130-400) 10^3/uL 351 MPV (8.0-11.0) fL 8.5 Immature Gran % % 0.2 Neutrophils % % 61.3 Lymphocytes % % 24.5 Monocytes % % 10.7 Eosinophils % % 2.3 Basophils % % 1.0 Nucleated RBC % (0.0-0.3) % 0.0 Absolute Neutrophils (1.2-6.7) 10^3/uL 2.92 Absolute Lymphocytes (1.2-3.4) 10^3/uL 1.17 L Absolute Monocytes (0.1-0.8) 10^3/uL 0.51 Absolute Eosinophils (0.0-0.7) 10^3/uL 0.11 Absolute Basophils (0.0-0.2) 10^3/uL 0.05 VBG Lactate (<or=2.0) mmol/L 0.7 Creatine Kinase (26-192) U/L 189 Medical Decision Making This dictation utilizes [id number] dictation software and may contain unedited grammatical errors. 39 year-old female presents to ED today by POV/ambulating with her boyfriend with a chief complaint of possible breakthrough seizure-activity last night- states she has been in a daze, possibly had some focal seizures in her sleep, having increased auras of her usual seizures in the setting of chronic epilepsy. Quality described as just feels fatigued, took a double dose of her Keppra this morning for a total of 1500mg, no radiation to active seizures, fever, cough, ETOH/drug use, nausea/vomiting, diarrhea, endorses more stress and lack of sleep than usual lately. Severity is described as moderate. Palliating factors include double dose of Keppra. Provoking factors include nothing specific. Patients' medical history: Chronic back pain, headache syndrome, seizure disorder, hypothyroidism. Family and social history: Noncontributory. Pertinent exam findings / vital signs include patient displaying no seizure-like activity here, appears mildly fatigued, benign cardiopulmonary exam, benign abdomen. Differential / pathologies of concern include seizure activity, infection, intracranial mass or other intracranial pathology, thyroid disease, subtherapeutic Keppra levels, viral syndrome. Diagnostic studies of: - CT head, CBC, CMP, lactate, magnesium, CK, TSH, Keppra level. - CT head without intracranial abnormality - CBC completely benign with only finding of mildly low lymphocytes just under normal possible viral syndrome - Lactate negative, no sepsis - CMP shows no actionable abnormality - Magnesium within normal limits - CK normal - TSH normal - Keppra level pending Interventions of: -2mg ativan, refused Keppra as she took a double dose of 1.5gm this morning. IVF 1L NS. ED Course/Assessment/Plan: 39-year-old female states she is had some fatigue and felt like she has been in a trance with increasing auras of her prior seizures on 2 daily Keppra, took a double dose this morning, laboratory workup is unremarkable no lactate or CK elevation do not suspect any status epilepticus activity took place this morning, patient displayed no seizure-like activity here I did give her a small dose of Ativan and she was sleeping throughout most of the visit but easily arousable. I counseled her on negative head CT and benign lab workup with possible viral syndrome, counseled her to follow-up with her neurologist, strict return criteria for any increasing seizure activities. Findings not consistent with status epilepticus, sepsis, electrolyte derangement, rhabdomyolysis, thyroid disease. Disposition of increasing frequency of seizure activity. Patient verbalized understanding of the plan and return to ED criteria and engaged in shared decision making. Medical Records Medical records reviewed: Yes I reviewed the patient's medical records. Imaging Data Radiologic Study: Attestation: I personally reviewed and interpreted this imaging study as follows: Imaging: CT Scan Radiologist's impression: EXAM: CT HEAD WO CLINICAL HISTORY: breakthrough seizures. TECHNIQUE: Imaging Protocol: Axial computed tomography images with coronal and sagittal reformatted images were created and reviewed COMPARISON: No exams were available for comparison FINDINGS: Ventricles and Extra axial spaces: Normal in size and morphology for the patient's age. Hemorrhage: None. Cerebral parenchyma: Normal. Midline shift: None. Brainstem/Cerebellum: Normal. Calvarium: Normal. Visualized Paranasal sinuses/Mastoids: Clear. Soft Tissues: Unremarkable. IMPRESSION: No acute intracranial process. Lab Data Lab results reviewed: Yes I reviewed the patient's lab results. Labs: Laboratory Tests Range/Units 07/23/24 11:30 WBC (4.4-10.8) 10^3/uL 4.77 RBC (3.93-5.22) 10^6/uL 4.50 Hgb (11.2-15.7) g/dL 13.5 Hct (36.0-46.0) % 39.7 MCV (80-95) fL 88 MCH (27.0-33.0) pg 30.0 MCHC (32.0-36.0) % 34.0 RDW (11.7-14.6) % 12.5 Plt Count (130-400) 10^3/uL 351 MPV (8.0-11.0) fL 8.5 Immature Gran % % 0.2 Neutrophils % % 61.3 Lymphocytes % % 24.5 Monocytes % % 10.7 Eosinophils % % 2.3 Basophils % % 1.0 Nucleated RBC % (0.0-0.3) % 0.0 Absolute Neutrophils (1.2-6.7) 10^3/uL 2.92 Absolute Lymphocytes (1.2-3.4) 10^3/uL 1.17 L Absolute Monocytes (0.1-0.8) 10^3/uL 0.51 Absolute Eosinophils (0.0-0.7) 10^3/uL 0.11 Absolute Basophils (0.0-0.2) 10^3/uL 0.05 VBG Lactate (<or=2.0) mmol/L 0.7 Sodium (136-145) mmol/L 137 Potassium (3.5-5.1) mmol/L 3.7 Chloride (98-107) mmol/L 102 Carbon Dioxide (21.0-32.0) mmol/L 28.4 Anion Gap (3-11) mmol/L 6.6 BUN (7-18) mg/dL 14 Creatinine (0.55-1.02) mg/dL 0.7 Est GFR (CKD-EPI 2020) (mL/min/1.73m2) 113.46 Glucose (74-106) mg/dL 142 H Calcium (8.5-10.1) mg/dL 8.5 Magnesium (1.8-2.4) mg/dL 1.8 Total Bilirubin (0.2-1.0) mg/dL 0.8 AST (15-37) U/L 19 ALT (14-59) U/L 22 Alkaline Phosphatase (46-116) U/L 50 Creatine Kinase (26-192) U/L 189 Total Protein (6.4-8.2) g/dL 7.0 Albumin (3.4-5.0) g/dL 3.9 TSH (0.36-3.74) uIU/mL 1.90 Quality:SDOH Health Related Social Needs: No Data to Display PFSH All Active Problems Increasing frequency of seizure activity (Acute) Erythema migrans (Lyme disease) (Acute) (Acute) Pelvic Ultrasound Transvaginal ultrasound was performed. A viable cheung IUP was noted with cardiac activity of 154. CRL measures 0.7 cm c/w a gestational age of 6 weeks 4 days with an EDC of 12/19/2018. Ovaries were visualized and normal in appearance. [place] sac is clear and without free fluid. 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 10/2016 Pap - HGSIL. LEEP recommended. Hypothyroid (Acute 11/24/11) Personal history of cervical dysplasia (Acute 02/12/15) TASHIA I-II 08/2014 Tobacco use (Acute 12/18/16) Medical History (Updated 07/23/24 @ 15:12 by AMY Cortes) DJD (degenerative joint disease), lumbar Chronic back pain PTSD (post-traumatic stress disorder) Depression with anxiety Headache syndrome Abdominal pain Surgical History (Updated 10/09/20 @ 15:36 by Amanda Deleon) Hx of hysterectomy, total section (~2008) Family History (Updated 10/09/20 @ 15:37 by Amanda Deleon) Mother Thyroid disease Social History Smoking/Tobacco Use Status: Current every day Tobacco Type: cigarettes Years smoked: 29 Smoking risk assessment performed?: Yes Alcohol Intake: current Alcohol Intake frequency: holidays/special occasions only Alcohol type: beer Drug use: Occasionally Substance use type: marijuana Do you feel safe at home: Yes Do you feel safe in your relationship?: Yes History History 3 Para 1 Hx # Term Pregnancies Multiple births Hx # Pregnancies Ectopic pregnancies AB induced Hx Number of Living Children AB spontaneous
[2024-07-23 12:09] LABS: ALT 22 U/L (14-59); AST 19 U/L (15-37); Albumin 3.9 g/dL (3.4-5.0); Alkaline Phosphatase 50 U/L (46-116); Anion Gap 6.6 mmol/L (3-11); BUN 14 mg/dL (7-18); Bilirubin, Total 0.8 mg/dL (0.2-1.0); CO2 28.4 mmol/L (21.0-32.0); CREATININE 0.7 mg/dL (0.55-1.02); Calcium 8.5 mg/dL (8.5-10.1); Chloride 102 mmol/L (98-107); Estimated GFR 113.46 (mL/min/1.73m2); Glucose 142 mg/dL (74-106); Magnesium 1.8 mg/dL (1.8-2.4); Potassium 3.7 mmol/L (3.5-5.1); Sodium 137 mmol/L (136-145)
[2024-07-26 13:01] LABS: Levetiracetam 40.6 mcg/mL
== END 2024-07-23 16:33 | disposition home or self-care (01) ==
PROVIDERS: Emergency Provider Physician Assistant; PCP Nurse Practitioner
DX: G40.909 Epilepsy, unspecified, not intractable, without status epilepticus (principal); F17.210 Nicotine dependence, cigarettes, uncomplicated; Z79.899 Other long term (current) drug therapy
CPT/HCPCS: 80053; 82550; 93005; 96361; 96374; 99285; 70450; 80177; 83605; 83735; 84443; 85025; 93010; 99284; J1953; J2060